=== PATIENT | female | born 1960 | race Asian ===

== ENCOUNTER 2022-06-18 13:38 | Emergency (ER) | payer MEDICAID ==
[~2022-06-18] VITALS: Ht 170.2 cm; Wt 81.6 kg
[2022-06-18 13:48] VITALS: BP_SYST 121
[2022-06-18] MEDS ORDERED: ALBMDI INH (15:39)
[2022-06-18] MEDS ORDERED: BENZ100C92 PO (15:39)
[2022-06-18 17:22] VITALS: BP_SYST 134
== END 2022-06-18 17:22 | disposition home or self-care (01) ==
LOC: SED 13:38
DX: J06.9 Acute upper respiratory infection, unspecified (principal); R05.9 Cough, unspecified; J02.9 Acute pharyngitis, unspecified; Z79.899 Other long term (current) drug therapy
CPT/HCPCS: 71045; 99283